=== PATIENT | female | born 1995 | race Caucasian/White ===

== ENCOUNTER 2017-05-28 12:02 | Emergency (ER) | payer OTHER ==
[~2017-05-28] VITALS: Ht 167.6 cm; Wt 79.4 kg
--- OUTSIDE RECORDS SUMMARY | 2017-05-28 12:09 | XMS REPORT | Referral Summary ---
Author Author [facility] Organization [facility] Address Unknown Phone Unavailable Care Team Providers Care Residential Collections Name Role Phone Roman Benavides PCP Encounter [facility] [phone] Date(s): 03/04/15 - 03/04/15 [facility] [address] [place], [place] [address] Discharge Diagnosis: Deviated nasal septum Discharge Diagnosis: Chronic tonsillitis Discharge Diagnosis: Throat pain Discharge Diagnosis: Tonsillith Discharge Diagnosis: Rhinosinusitis Discharge Disposition: -Home or Self Care Attending Physician: Yordan Pineda MD Admitting Physician: Yordan Pineda MD Referring Physician: Roman Benavides MD Vital Signs No data available for this section Problem List Condition Effective Dates Status Health Status Informant Heart Active patient murmur(Confirmed) Motion Active patient sickness(Confirmed) Obesity(Confirmed) Active patient Allergies, Adverse Reactions, Alerts Substance Reaction Severity Status Rocephin heart attack sx Active Medications Antiinflammatory medication Antiinflammatory medication Start Date: 03/04/15 Status: Ordered Anxiety medication Anxiety medication Start Date: 03/04/15 Status: Ordered control pills control pills Start Date: 03/04/15 Status: Ordered HYDROcodone-acetaminophen 7.5 mg-325 mg/15 mL oral solution 15 mL, Oral, q6hr, as needed for pain, # 480 mL, 0 Refill(s) Start Date: 06/09/15 Status: Ordered OxyCONTIN 10 mg oral tablet, extended release 10 mg 1 tabs, Oral, q12hr, # 60 tabs, 0 Refill(s) Start Date: 06/03/15 Status: Ordered Zofran ODT 4 mg oral tablet, disintegrating 4 mg 1 tabs, Oral, TID, Nausea, # 15 tabs, 0 Refill(s) Start Date: 06/03/15 Stop Date: 06/03/15 Status: Ordered Results No data available for this section Immunizations No data available for this section Procedures Procedure Date Related Diagnosis Body Site Nasal/sinus endoscopy, surgical, with 06/03/15 maxillary antrostomy; with removal of tissue from maxillary sinus.. Nasal/sinus endoscopy, surgical; with 06/03/15 ethmoidectomy, partial (anterior).. Submucous resection inferior turbinate, 06/03/15 partial or complete, any method.. Tonsillectomy, primary or secondary; age 12 06/03/15 or over.. Nasal endoscopy, diagnostic, unilateral or 03/04/15 bilateral (separate procedure).. Left elbow 2001 Nasal endoscopy, diagnostic, unilateral or bilateral (separate procedure).. Social History Social History Type Response Smoking Status Never smoker Assessment and Plan Extracted from: Title: Office Visit Note Author: Yordan Pineda MD Date: 03/04/15 Assessment/Plan 1.Throat pain 2.Chronic tonsillitis 3.Tonsillith 4.Rhinosinusitis Plan I placed the patient on clindamycin and recommend a CT scan of the sinuses for further evaluation. Return to clinic in two weeks. 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 5.Deviated nasal septum Orders: clindamycin, 300 mg 1 caps, Oral, q8hr, # 30 caps, 0 Refill(s), Pharmacy: [facility] #[id number], [address] Sinus w/o Contrast
--- OUTSIDE RECORDS SUMMARY | 2017-05-28 12:09 | XMS REPORT | Continuity of Care Document ---
Author Author [facility] Organization [facility] Address Unknown Phone Unavailable Allergies There is no data. Medications There is no data. Problems Date Dx Coded Attending Type Code Diagnosis Diagnosed By 08/05/2016 ARCHIE BURKS DF H47.10 Unspecified papilledema Procedures There is no data. Results There is no data. Encounters ACCT No. Visit Date/Time Discharge Status Pt. Type Provider Facility Loc./Unit Complaint [id number] 08/05/2016 13:07:00 08/05/2016 13:07:00 DIS Outpatient ARCHIE BURKS [facility] RADS NO KNOWN INJURY,
--- OUTSIDE RECORDS SUMMARY | 2017-05-28 12:09 | XMS REPORT | Referral Summary ---
Author Author [facility] Organization [facility] Address Unknown Phone Unavailable Care Team Providers Care Tool Smith Name Role Phone Roman Benavides PCP Encounter [facility] Date(s): 06/03/15 - 06/03/15 [facility] [address] [place], [place] [address] Discharge Diagnosis: Chronic Anterior Ethmoidal Sinusitis Discharge Diagnosis: Deviated nasal septum Discharge Diagnosis: Hypertrophy of nasal turbinates Discharge Diagnosis: Chronic right maxillary sinusitis Discharge Diagnosis: Chronic tonsillitis Discharge Disposition: -Home or Self Care Attending Physician: Yordan Pineda MD Admitting Physician: Yordan Pineda MD Vital Signs Most recent to 1 oldest [Reference Range]: Temperature Temporal 36.6 degC Artery [36.3-37.8 (06/03/15 12:42 PM) degC] Peripheral Pulse 72 bpm Rate [60-100 bpm] (06/03/15 12:42 PM) Respiratory Rate 16 br/min [14-20 br/min] (06/03/15 12:42 PM) Blood Pressure 134/79 mmHg [90-140/60-90 mmHg] (06/03/15 12:42 PM) SpO2 97 % (06/03/15 12:42 PM) Problem List Condition Effective Dates Status Health [...] # 480 mL, 0 Refill(s) Start Date: 06/03/15 Status: Ordered OxyCONTIN 10 mg oral tablet, extended release 10 mg 1 tabs, Oral, q12hr, # 60 tabs, 0 Refill(s) Start Date: 06/03/15 Status: Ordered Zofran ODT 4 mg oral tablet, disintegrating 4 mg 1 tabs, Oral, TID, Nausea, # 15 tabs, 0 Refill(s) Start Date: 06/03/15 Stop Date: 06/03/15 Status: Ordered Results Chemistry Most recent to 1 oldest [Reference Range]: U Beta hCG Ql Neg (06/03/15 12:53 PM) Immunizations No data available for this section Procedures Procedure Date Related Diagnosis Body Site Left elbow 2001 Social History Social History Type Response Smoking Status Never smoker Assessment and Plan Extracted from: Title: Ambulatory Patient Education Author: Sarahi Velazco RN Date: [facility] [phone] Post Operative Instructions: Return to see Dr. Pineda in two weeks. Activities Ambulate_X_ Unrestricted __ On Crutches as tolerated Yes or No - Weight Bearing Exercise_X_ None__ Light__ UnrestrictedOther: 1 weeks Do not strain or lift more than _ lbs. for _ weeks. Diet __ Liquids (Jell-O, soups, etc., if you are nauseated) _X_ Begin with liquids and light foods then progress to regular diet. __ Regular diet __ No alcoholic beverages for 24 hours or while taking pain medication. Personal hygiene __ Bath __ Shower after __ hours__ Sponge Bath__ S[facility] __ Remove dressing in ___hours_X Change dressing as necessary. __ Keep dressing clean and dry.__ Do not change dressing until you see your doctor. __ Elevate affected area above level of your heart.__ Apply ice to area for __ _ hours _X_ Avoid blowing nose ,1 week__ Keep water out of ears __ Wear sling as directed.__ Remove drain in ___ hour_X_ Other: Use nasal saline spray to nose, 3-4 puffs each nostril 3-4 times a day or as needed for congestion. If any problems occur or if you have any further questions, please contact your physician. In an emergency, call [phone] ([phone]), if you cannot reach your physician. If you find that you cannot contact your physician, but feel that your signs and symptoms warrant a physician s attention, go to an Emergency room which is the closest to you. Activities:Call your surgeon promptly if you have: __ Take Tylenol/Advil as needed for discomfort _X_ If fever over _102 F__ _X_ Prescription given for discomfort. Use as directed.__ Pain not relieved by pain medication __ Prescription given for antibiotic. Follow instructions__ Bleeding or unexpected drainage from on label. Continue taking until medication is gone. incision. _X_ Resume routine medications.__ Extreme redness or swelling around incision. Other: __ Inability to urinate by: __ Next dose of pain medicine may be given at __X_ Persistent nausea and vomiting. (Take with food to prevent stomach upset.)__ Ear drainage more than _ Days __ Stool softener__ Cough develops or difficulty breathing. Do NOT drive or operate hazardous machinery for 24 hours or while taking pain medication. Do not sign any important documents or make important decisions for 24 hours following surgery. When taking pain medicine, be careful as you walk or climb stairs as dizziness is not unusual. Check temperature every four hours during the day for two days. Family Medicine Tonsillectomy, Care After These instructions give you information on caring for yourself after your procedure. Your doctor may also give you more specific instructions. Call your doctor if you have any problems or questions after your procedure. HOME CARE Get proper rest and keep your head raised at all times. Drink lots of fluids. Only take medicine as told by your doctor. Do not take aspirin. Aspirin increases the risk of bleeding. Eat soft and cold foods, such as ice cream, frozen ice pops, and cold drinks. Avoid mouthwashes and gargles. Avoid people with colds and sore throats. GET HELP IF: Your pain does not go away after you take pain medicine. You have a rash. You have a fever. You feel lightheaded or pass out (faint). You cannot swallow even a little liquid or spit. Your pee is getting very dark. GET HELP RIGHT AWAY IF: You have trouble breathing. You have any allergy problems because of your medicines. You have increased bleeding, you throw up (vomit), or you cough or spit up bright red blood. MAKE SURE YOU: Understand these instructions. Will watch your condition. Will get help right away if you are not doing well or get worse. Document Released: 07/02/2011 Document Revised: 06/04/2014 Document Reviewed: ExitCare Patient Information 2015 [employer], [facility]. This information is not intended to replace advice given to you by your health care provider. Make sure you discuss any questions you have with your health care provider. No follow up information was provided.
--- OUTSIDE RECORDS SUMMARY | 2017-05-28 12:09 | XMS REPORT ---
Author Author Alek Pratt [facility] Neurology Clinic Address [address] [place] [address] Care Team Providers Care Vault Maker Name Role Phone Alek Pratt Unavailable PROBLEMS Type Condition ICD9-CM Code [id number] Code Onset Dates Condition Status SNOMED Code Problem Papilledema H47.10 Active 678762547 ALLERGIES Unknown Allergies SOCIAL HISTORY No smoking Hx information available PLAN OF CARE VITAL SIGNS MEDICATIONS Medication Instructions Dosage Frequency Start Date End Date Duration Status Topamax 100 MG Orally Twice a day 1 tablet 12h October, 30 days Active RESULTS No Results PROCEDURES No Known procedures IMMUNIZATIONS No Known Immunizations
--- OUTSIDE RECORDS SUMMARY | 2017-05-28 12:09 | XMS REPORT | Referral Summary ---
Author Author [facility] Organization [facility] Address Unknown Phone Unavailable Care Team Providers Care Sewer Pipe Offbearer Name Role Phone Roman Benavides PCP Encounter [facility] [id number] Date(s): 03/18/15 - 03/18/15 [facility] [address] [place], [place] [address] Discharge Diagnosis: Maxillary sinus polyp Discharge Diagnosis: Chronic right maxillary sinusitis Discharge Diagnosis: Cryptic Tonsil Discharge Diagnosis: Chronic tonsillitis Discharge Disposition: -Home or Self Care Attending Physician: Yordan Pineda MD Admitting Physician: Yordan Pineda MD Vital Signs No data available for [...] or secondary; age 13 06/03/15 or over.. Left elbow 2001 Nasal endoscopy, diagnostic, unilateral or bilateral (separate procedure).. Social History Social History Type Response Smoking Status Never smoker Assessment and Plan Extracted from: Title: Office Visit Note Author: Yordan Pineda MD Date: 03/18/15 Assessment/Plan 1.Chronic right maxillary sinusitis Plan I counseled the patient that a tonsillectomy and right endoscopic sinus surgery to remove the polyp is indicated. A detailed discussion of the risks, benefits, and limitations of the procedure was performed with the patient. The patient had the opportunity to ask questions and appeared to understand the pertinent issues. The procedure will be arranged at the patient s convenience. 2.Maxillary sinus polyp 3.Chronic tonsillitis 4.Cryptic Tonsil
--- OUTSIDE RECORDS SUMMARY | 2017-05-28 12:09 | XMS REPORT ---
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
--- OUTSIDE RECORDS SUMMARY | 2017-05-28 12:09 | XMS REPORT ---
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
--- OUTSIDE RECORDS SUMMARY | 2017-05-28 12:09 | XMS REPORT ---
Author Author Alek Pratt [facility] Neurology Clinic Address [address] [place] [address] Care Team Providers Care Nurses Director Name Role Phone Alek Pratt Unavailable PROBLEMS Type Condition ICD9-CM Code UOH64-UI Code Onset Dates Condition Status SNOMED Code Problem Papilledema H47.10 Active 797186506 Assessment Papilledema H47.10 Sep, Active 311651207 ALLERGIES Unknown Allergies SOCIAL HISTORY No smoking Hx information available PLAN OF CARE VITAL SIGNS MEDICATIONS Medication Instructions Dosage Frequency Start Date End Date Duration Status Topamax 100 MG Orally Twice a day 1 tablet 12h Sep, 21 days Active RESULTS No Results PROCEDURES No Known procedures IMMUNIZATIONS No Known Immunizations
--- OUTSIDE RECORDS SUMMARY | 2017-05-28 12:09 | XMS REPORT | Referral Summary ---
Author Author [facility] Organization [facility] Address Unknown Phone Unavailable Care Team Providers Care Natural Resource Officer Name Role Phone Roman Benavides PCP Encounter [facility] [id number] Date(s): 03/18/15 - 03/18/15 [facility] [address] [place], [place] [address] Discharge Disposition: 01-Home or Self Care Attending Physician: Yordan Pineda MD Admitting Physician: Yordan Pineda MD Vital Signs No data available for this section Problem List Condition Effective Dates Status Health Status Informant Obesity(Confirmed) Active patient Allergies, Adverse Reactions, Alerts Substance Reaction Severity Status Rocephin Active Medications Antiinflammatory medication Antiinflammatory medication Start Date: 03/04/15 Status: Ordered Anxiety medication Anxiety medication Start Date: 03/04/15 Status: Ordered control pills control pills Start Date: 03/04/15 Status: Ordered clindamycin 300 mg oral capsule 300 mg 1 caps, Oral, q8hr, # 30 caps, 0 Refill(s), [id number], 1 caps Oral q8hr Start Date: 03/04/15 Status: Ordered Results No data available for this section Immunizations No data available for this section Procedures Procedure Date Related Diagnosis Body Site Left elbow 2001 Social History Social History Type Response Smoking Status Never smoker Assessment and Plan No data available for this section
--- OUTSIDE RECORDS SUMMARY | 2017-05-28 12:09 | XMS REPORT ---
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, Active 70896505 Assessment Benign intracranial hypertension G93.2 Sep, Active 60082551 Assessment 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, Active 62350864 ALLERGIES Substance Reaction Event Type Date Status Rocephin numbness/burning Drug Allergy Sep, Active SOCIAL HISTORY No smoking Hx information available PLAN OF CARE VITAL SIGNS Height 65.5 in 2016-10-05 Weight 220.8 lbs 2016-10-05 Heart Rate 72 /min 2016-10-05 Respiratory Rate 16 /min 2016-10-05 BMI 36.18 kg/m2 2016-10-05 Blood pressure systolic 126 mm Hg 2016-10-05 Blood pressure diastolic 72 mm Hg 2016-10-05 MEDICATIONS Medication Instructions Dosage Frequency Start Date End Date Duration Status Topamax 100 MG Orally Twice a day 1 tablet 12h Sep, 30 Active Sprintec 28 0.25-35 MG-MCG Orally Once a day 1 tablet 24h Active RESULTS No Results PROCEDURES Procedure Date Ordered Related Diagnosis Body Site Office Visit, Est Pt., Level 4 October 05, 2016 IMMUNIZATIONS No Known Immunizations
[2017-05-28] MEDS ORDERED: IOHEXOL 350 MG/ML 100 ML (OMNIPAQUE 350) VIAL IV ONE (12:30)
[2017-05-28] MEDS ORDERED: NS 100 ML (IVPB) BAG IV ONE (12:30)
[2017-05-28] MEDS ORDERED: TOPI100T PO (12:32)
[2017-05-28] MEDS ORDERED: NORG1TAB14 PO (12:32)
[2017-05-28] MEDS ORDERED: [UNRECOGNIZED DRUG - OTHER] (12:32)
[2017-05-28 12:34] LABS: BASOPHILS % (AUTO) 0 % (0-10); EOSINOPHILS % (AUTO) 0 % (0-10); LYMPHOCYTES # (AUTO) 2.6 X 10^3 (1.0-4.0); LYMPHOCYTES % (AUTO) 41 % (12-44); MEAN CORPUSCULAR HEMOGLOBIN 31 PG (25-34); MEAN CORPUSCULAR HGB CONC 35 G/DL (32-36); MEAN CORPUSCULAR VOLUME 89 FL (80-99); MEAN PLATELET VOLUME 10.2 FL (7.4-10.4); MONOCYTES # (AUTO) 0.5 X 10^3 (0.0-1.0); MONOCYTES % (AUTO) 8 % (0-12); NEUTROPHILS # (AUTO) 3.3 X 10^3 (1.8-7.8); NEUTROPHILS % (AUTO) 52 % (42-75); PLATELET COUNT 263 10^3/uL (130-400); RED BLOOD COUNT 4.75 10^6/uL (4.35-5.85); RED CELL DISTRIBUTION WIDTH 12.5 % (10.0-14.5); WHITE BLOOD COUNT 6.3 10^3/uL (4.3-11.0)
[2017-05-28 12:39] LABS: BILIRUBIN,URINE NEGATIVE (NEGATIVE); KETONES,URINE NEGATIVE (NEGATIVE); LEUKOCYTE ESTERASE ,URINE 1+ (NEGATIVE); NITRITE,URINE NEGATIVE (NEGATIVE); PH,URINE 7 (5-9); PROTEIN,URINE NEGATIVE (NEGATIVE); UROBILINOGEN,URINE NORMAL (NORMAL)
[2017-05-28 12:46] LABS: SQUAMOUS EPITHELIAL CELL,UR 25-50 /HPF; WBC,URINE 0-2 /HPF
[2017-05-28 12:47] LABS: ALANINE AMINOTRANSFERASE 15 U/L (0-55); ALBUMIN 4.1 GM/DL (3.2-4.5); ANION GAP 12 MMOL/L (5-14); ASPARTATE AMINO TRANSFERASE 16 U/L (5-34); BILIRUBIN,TOTAL 0.3 MG/DL (0.1-1.0); BLOOD UREA NITROGEN 17 MG/DL (7-18); BUN/CREATININE RATIO 21; CALCIUM 9.1 MG/DL (8.5-10.1); CARBON DIOXIDE 17 MMOL/L (21-32); CHLORIDE 111 MMOL/L (98-107); CREATININE SERUM 0.81 MG/DL (0.60-1.30); GFR ESTIMATED > 60; GLUCOSE 92 MG/DL (70-105); LIPASE 35 U/L (8-78); SODIUM 140 MMOL/L (135-145); TOTAL PROTEIN 7.4 GM/DL (6.4-8.2)
--- NOTE | 2017-05-28 13:30 | Diagnostic Imaging Report ---
PROCEDURE: CT abdomen and pelvis with contrast, rule out appendicitis. TECHNIQUE: Multiple contiguous axial images were obtained through the abdomen and pelvis after the administration of intravenous contrast. INDICATION: Sharp pelvic pain. CORRELATION STUDY: None. FINDINGS: LOWER THORAX: Clear. LIVER: Likely very minimal asymmetric fatty infiltration along the falciform ligament. Otherwise unremarkable. GALLBLADDER: Present and unremarkable. No bile duct dilatation. SPLEEN: Unremarkable. PANCREAS: Unremarkable. ADRENAL GLANDS: Unremarkable. KIDNEYS: Normal configuration. No calcification or obstruction. ABDOMINAL AORTA: Unremarkable, nonaneurysmal. GASTROINTESTINAL TRACT: Stomach unremarkable. There are a few prominent fluid-filled loops of small bowel in the pelvis with slight enhancement. Findings may reflect mild nonspecific enteritis. There is presence of small amount of free pelvic fluid. Appendix is present in the right lower quadrant and appears relatively unremarkable. There is mild/moderate severity fecal retention within the colon. URINARY BLADDER: Decompressed. REPRODUCTIVE: Uterus appearing unremarkable. Adnexa unremarkable. OSSEOUS STRUCTURES: No acute abnormality. IMPRESSION: Question of a few prominent enhancing loops of small bowel in the pelvis could reflect nonspecific enteritis along with small amount of pelvic fluid. No findings to suggest acute appendicitis. Mild/ moderate severity fecal retention. Dictated by: Dictated on workstation # [id number]
--- NOTE | 2017-05-28 13:42 | ED Abdominal Pain ---
General Chief Complaint: Abdominal/GI Problems Stated Complaint: PAIN IN UTERUS Nursing Triage Note: PT CO OF ABD PAIN SUPRA PUBIC AREA, DENIES ANY URINARY CO, STATES STARTED THIS AM Sepsis Screen: No Definite Risk Source of Information: Patient, Family History of Present Illness Time Seen By Provider: 13:37 Initial Comments This 21-year-old female presents complaining of severe suprapubic pain that began earlier this morning. Patient denies associated dysuria, frequency, hematuria, associated flank pain, diarrhea, constipation, persistent nausea or vomiting. Patient's had similar episodes 2 the past. Both been self-limited. Allergies and Home Medications Allergies Coded Allergies: No Allergy Information Available (Unverified , 05/28/17) Home Medications Norgestimate-Ethinyl Estradiol 1 Each Tablet, 1 EACH PO DAILY, (Reported) Topiramate 100 Mg Tablet, 100 MG PO BID, (Reported) [Benoflaxin] , Unknown Dose, (Reported) Review of Systems Constitutional: No chills, No fever EENTM: No Blurred Vision Respiratory: Denies Cough Cardiovascular: Denies Chest Pain Gastrointestinal: Abdominal Pain, Denies Diarrhea, Denies Nausea, Denies Rectal Bleeding, Denies Vomiting Genitourinary: Denies Burning, Denies Frequency Musculoskeletal: No back pain Skin: No change in color Psychiatric/Neurological: No Symptoms Reported Endocrine: No Symptoms Reported Hematologic/Lymphatic: No Symptoms Reported Past Qxrauow-[id number]-Sflscy Hx Patient Social History Alcohol Use: Denies Use Recreational Drug Use: No Smoking Status: Never a Smoker Recent Foreign Travel: No Contact w/Someone Who Travel: No Recent Infectious Disease Expo: No Recent Hopitalizations: No Physical Abuse: No Sexual Abuse: No Neurological History of Neurological Disord: Yes Neurological Disorders: Headaches /Migraines Psychosocial Suicide Risk Score: 0 Reviewed Nursing Assessment Reviewed/Agree w Nursing PMH: Yes Physical Exam Vital Signs VS - Last 72 Hours, by Label 05/28/17 12:20 Temp 96.0 Pulse 95 Resp 18 B/P (MAP) 128/83 (98) Pulse Ox 97 Capillary Refill : Less Than 3 Seconds General Appearance: WD/WN, mild distress HEENT: normal ENT inspection Neck: normal inspection Respiratory: lungs clear, normal breath sounds Cardiovascular: normal peripheral pulses, regular rate, rhythm, no edema Gastrointestinal: normal bowel sounds, non tender, soft, no organomegaly Extremities: normal range of motion, non-tender, normal inspection Back: normal inspection, no CVA tenderness Neurologic/Psychiatric: no motor/sensory deficits, alert, normal mood/affect, oriented x 3 Skin: normal color, warm/dry Progress/Results/Core Measures Results/Orders Lab Results Laboratory Tests Test 05/28/17 12:14 05/28/17 12:20 Range/Units Urine Color YELLOW Urine Clarity SLIGHTLY CLOUDY Urine pH 7 5-9 Urine Specific [place] 1.010 L 1.016-1.022 Urine Protein NEGATIVE NEGATIVE Urine Glucose (UA) NEGATIVE NEGATIVE Urine Ketones NEGATIVE NEGATIVE Urine Nitrite NEGATIVE NEGATIVE Urine Bilirubin NEGATIVE NEGATIVE Urine Urobilinogen NORMAL NORMAL MG/DL Urine Leukocyte Esterase 1+ H NEGATIVE Urine RBC (Auto) NEGATIVE NEGATIVE Urine RBC NONE /HPF Urine WBC 0-2 /HPF Urine Squamous Epithelial Cells 25-50 H /HPF Urine Crystals PRESENT H /LPF Urine Amorphous Sediment RARE MARKEL PHOSPHATE H /LPF Urine Bacteria TRACE /HPF Urine Casts NONE /LPF Urine Mucus NEGATIVE /LPF Urine Culture Indicated NO Urine Test NEGATIVE NEGATIVE White Blood Count 6.3 4.3-11.0 10^3/uL Red Blood Count 4.75 4.35-5.85 10^6/uL Hemoglobin 14.7 11.5-16.0 G/DL Hematocrit 42 35-52 % Mean Corpuscular Volume 89 80-99 FL Mean Corpuscular Hemoglobin 31 25-34 PG Mean Corpuscular Hemoglobin Concent 35 32-36 G/DL Red Cell Distribution Width 12.5 10.0-14.5 % Platelet Count 263 130-400 10^3/uL Mean Platelet Volume 10.2 7.4-10.4 FL Neutrophils (%) (Auto) 52 42-75 % Lymphocytes (%) (Auto) 41 12-44 % Monocytes (%) (Auto) 8 0-12 % Eosinophils (%) (Auto) 0 0-10 % Basophils (%) (Auto) 0 0-10 % Neutrophils # (Auto) 3.3 1.8-7.8 X 10^3 Lymphocytes # (Auto) 2.6 1.0-4.0 X 10^3 Monocytes # (Auto) 0.5 0.0-1.0 X 10^3 Eosinophils # (Auto) 0.0 0.0-0.3 10^3/uL Basophils # (Auto) 0.0 0.0-0.1 10^3/uL Sodium Level 140 135-145 MMOL/L Potassium Level 4.0 3.6-5.0 MMOL/L Chloride Level 111 H 98-107 MMOL/L Carbon Dioxide Level 17 L 21-32 MMOL/L Anion Gap 12 5-14 MMOL/L Blood Urea Nitrogen 17 7-18 MG/DL Creatinine 0.81 0.60-1.30 MG/DL Estimat Glomerular Filtration Rate > 60 BUN/Creatinine Ratio 21 Glucose Level 92 70-105 MG/DL Calcium Level 9.1 8.5-10.1 MG/DL Total Bilirubin 0.3 0.1-1.0 MG/DL Aspartate Amino Transf (AST/SGOT) 16 5-34 U/L Alanine Aminotransferase (ALT/SGPT) 15 0-55 U/L Alkaline Phosphatase 51 40-136 U/L Total Protein 7.4 6.4-8.2 GM/DL Albumin 4.1 3.2-4.5 GM/DL Lipase 35 8-78 U/L My Orders Orders - KEY ESCOBAR MD Ct Abd/Pelv W (Appendicitis) (05/28/17 12:27) Cbc With Automated Diff (05/28/17 12:27) Comprehensive Metabolic Panel (05/28/17 12:27) Lipase (05/28/17 12:27) Ua Culture If Indicated (05/28/17 12:27) Hcg,Qualitative Urine (05/28/17 12:27) Iohexol Injection (Omnipaque 350 Mg/Ml 1 (05/28/17 12:30) Ns (Ivpb) (Sodium Chloride 0.9% Ivpb Bag (05/28/17 12:30) Pharmacy Communication (Pharmacy Communi (05/28/17 12:30) Medications Given in ED Current Medications Medications Dose Ordered Sig/Chin Route Start Time Stop Time Status Last Admin Dose Admin Iohexol 100 ml ONCE ONCE IV 05/28/17 12:30 05/28/17 12:31 DC 05/28/17 12:45 100 ML Sodium Chloride 100 ml ONCE ONCE IV 05/28/17 12:30 05/28/17 12:31 DC 05/28/17 12:45 80 ML Vital Signs/I&O Vital Sign - Last 12Hours 05/28/17 12:20 Temp 96.0 Pulse 95 Resp 18 B/P (MAP) 128/83 (98) Pulse Ox 97 Blood Pressure Mean: 98 Point of Care Testing Urine -Bedside: Negative Progress Note : Time: 13:41 Progress Note The patient's laboratory and radiologic evaluation were unremarkable. Patient normal CBC, CMP, urinalysis, and CT of abdomen and pelvis. The abdomen findings are explained to the patient and her . I asked that she follow-up closely with Dr. Arriaza. I suggest the possibility of a ovarian cyst as the etiology for the pain. I will send the patient with some Toradol and Zofran which she received prior to discharge from the emergency department. Departure Impression Impression: Primary Impression: Abdominal pain Qualified Codes: R10.30 - Lower abdominal pain, unspecified Disposition: HOME, SELF-CARE Condition: Improved Departure-Patient Inst. Decision time for Depature: 13:50 Referrals: GREYSON ARRIAZA MD (PCP/Family) Primary Care Physician Patient Instructions: Acute Abdomen (Belly Pain), Adult (DC) Add. Discharge Instructions: Toradol and Zofran as prescribed for pain and nausea. Follow-up closely with Dr. Arriaza next week. Return if any problems or questions. All discharge instructions reviewed with patient and/or family. Voiced understanding. KEY ESCOBAR MD May 28, 2017 13:41
[2017-05-28] MEDS ORDERED: ONDANSETRON 4 MG/2 ML (SDV) Z0FRAN ONE (13:48)
[2017-05-28] MEDS ORDERED: KETOROLAC 30 MG/ML VIAL ONE (13:48)
[2017-05-28 13:56] VITALS: BP 124/74
[2017-05-28] MEDS ORDERED: ONDANSETRON 4 MG/2 ML (SDV) Z0FRAN IVP ONE (14:00)
[2017-05-28] MEDS ORDERED: KETOROLAC 30 MG/ML VIAL IVP ONE (14:00)
== END 2017-05-28 13:55 | disposition home or self-care (01) ==
LOC: ER 12:05
DX: R10.2 Pelvic and perineal pain (principal); G43.909 Migraine, unspecified, not intractable, without status migrainosus
CPT/HCPCS: 36415; 74177; 80053; 81000; 83690; 84703; 85025

== ENCOUNTER → 2018-11-24 | Outpatient (CLI) | payer OTHER ==
[~2018-11-24] MED LIST: NORG1TAB14 PO; TOPI100T PO; [UNRECOGNIZED DRUG - OTHER]
--- NOTE | 2018-11-24 20:09 | Diagnostic Imaging Report ---
INDICATION: Pelvic pain. TECHNIQUE: Pelvic sonography performed with transabdominal views. FINDINGS: The uterus measures 8.3 x 4.3 x 4.1 cm. There is no uterine mass. Endometrium measures 8 mm in thickness. The right ovary measures 3.2 x 2.9 x 1.9 cm and appears normal. The left ovary measures 3.5 x 2.2 x 2.3 cm and appears normal. There is no significant free fluid. Color flow is demonstrated in both ovaries. IMPRESSION: Unremarkable pelvic sonography. Dictated by: Dictated on workstation # [id number]
== END ==
LOC: RAD 11:55
PROVIDERS: ATTEND Nurse Practitioner Family
DX: R10.2 Pelvic and perineal pain (principal); Z87.42 Personal history of other diseases of the female genital tract
CPT/HCPCS: 76856